=== PATIENT | female | born 1980 | race Caucasian/White ===

== ENCOUNTER 2023-03-20 14:25 | Outpatient (CLI) | payer MEDICAID ==
[2023-03-20 21:04] LABS: EOSINOPHILS % (AUTO) 1.4 %; HCT - HEMATOCRIT 34.4 % (37.0-47.0); HGB - HEMOGLOBIN 11.9 g/dL (12.0-16.0); LYMPHOCYTES % (AUTO) 38.5 %; MEAN CORPUSCULAR HEMOGLOBIN 33.6 pg (27.0-31.0); MEAN CORPUSCULAR HGB CONC 34.6 g/dL (32.0-36.0); MEAN CORPUSCULAR VOLUME 97.2 fL (81.0-99.0); MEAN PLATELET VOLUME 10.7 fL (7.9-10.8); MONOCYTES % (AUTO) 8.2 %; NEUTROPHILS % (AUTO) 50.9 %; PLT - PLATELET COUNT 196 10^3/uL (130-450); RED BLOOD COUNT 3.54 10^6/uL (4.20-5.40); RED CELL DISTRIBUTION WIDTH 14.1 % (12.0-15.0); WHITE BLOOD COUNT 2.1 x10^3/uL (4.8-10.8)
[2023-03-20 21:06] LABS: ABNORMAL LYMPHS % (MANUAL) 0 %
[2023-03-20 21:42] LABS: BAND NEUTROPHILS % (MANUAL) 2 %; DIFFERENTIAL COMMENT MANUAL DIFFERENTIAL; LYMPHOCYTES # (MANUAL) 0.9 10^3/uL (1.5-3.5); LYMPHOCYTES % (MANUAL) 42 %; MONOCYTES # (MANUAL) 0.1 10^3/uL (0.0-1.0); NEUTROPHILS # (MANUAL) 1.1 10^3/uL (1.5-6.6); PLATELET ESTIMATE, MANUAL NORMAL (130-450,000) (NORMAL); PLATELET MORPHOLOGY 1+ GIANT PLATELETS (NORMAL); RBC MORPHOLOGY (MULTIPLE) NORMAL APPEARANCE (NORMAL); REACTIVE LYMPHS % (MANUAL) 2 %
== END 2023-03-20 14:26 | disposition home or self-care (01) ==
LOC: LAB.S 14:25
DX: C50.411 Malignant neoplasm of upper-outer quadrant of right female breast (principal); C79.51 Secondary malignant neoplasm of bone; Z17.0 Estrogen receptor positive status [ER+]
CPT/HCPCS: 36415; 85025